=== PATIENT | male | born 1955 | race Caucasian/White ===

== ENCOUNTER → 2019-08-12 13:32 | Outpatient (CLI) | payer MEDICAID, SELFPAY ==
--- NOTE | 2019-08-12 13:48 | RAD_ITS ---
STUDY: X-RAY - LEFT HAND REASON FOR EXAM: Pain for approximately one year. TECHNIQUE: 3 view(s) of the hand. COMPARISON: None. FINDINGS: Normal radiocarpal articulation. Normal distal radioulnar joint. Normal visualized carpal bones. Normal carpal articulations There is severe joint space narrowing of the carpometacarpal articulation of the thumb. Normal second through fifth carpometacarpal joints. Normal metacarpi. There is mild joint space narrowing of the metacarpophalangeal joint of the thumb. There is mild joint space narrowing of the interphalangeal joint of the thumb. Normal proximal and distal phalanges of the thumb. Normal metacarpophalangeal joints of the second through fifth fingers. There is joint space narrowing of the distal interphalangeal joints of the second through fifth fingers. Normal phalanges of the second through fifth fingers. The soft tissue structures are unremarkable. RAD/Hand Min 3 Views IMPRESSION: Osteoarthritis. Electronically Signed: Alvaro Nicole MD at 14:53 EDT Tel , Service support ,
--- NOTE | 2019-08-12 13:48 | RAD_ITS ---
STUDY: X-RAY - RIGHT HAND REASON FOR EXAM: Pain for approximately one year. TECHNIQUE: 3 view(s) of the hand. COMPARISON: None. FINDINGS: Normal radiocarpal articulation. Normal distal radioulnar joint. Normal visualized carpal bones. There is mild joint space narrowing of the triscaphe articulation. There are marginal osteophytes with moderate to severe joint space narrowing of the carpometacarpal articulation of the thumb. Normal second through fifth carpometacarpal joints. Normal metacarpi. There is joint space narrowing of the metacarpophalangeal joint of the thumb. There is mild joint space narrowing of a interphalangeal joint of the thumb. Normal proximal and distal phalanges of the thumb. Normal metacarpophalangeal joints of the second through fifth fingers. There is joint space narrowing of the distal interphalangeal joints of the second through fifth fingers. Normal phalanges of the second through fifth fingers. The soft tissue structures are unremarkable. RAD/Hand Min 3 Views IMPRESSION: Osteoarthritis. Electronically Signed: Alvaro Nicole MD at 14:15 EDT Tel , Service support ,
== END ==
PROVIDERS: PCP Family Medicine; Referring Provider Family Medicine; Visit Provider Family Medicine
DX: M79.641 Pain in right hand (principal); M79.642 Pain in left hand
CPT/HCPCS: 73130

== ENCOUNTER → 2020-01-21 10:00 | Outpatient (CLI) | payer MEDICAID, SELFPAY | PROVIDERS: PCP Family Medicine | DX: E29.1 Testicular hypofunction (principal) | CPT/HCPCS: 36415; 84403 ==

== ENCOUNTER → 2021-12-09 | Outpatient (CLI) | payer MEDICARE, SELFPAY ==
[2021-12-09 09:46] LABS: Absolute Lymphocyte Count 1.62 X10^3/uL (0.83-4.51); Absolute Neutrophil Count 4.1 X10^3/uL (2.0-7.7); Basophil# 0.03 X10^3/uL; Basophil% 0.5 % (0-1); Eosinophil# 0.14 X10^3/uL; Eosinophils% 2.2 % (0-5); Hematocrit 46.6 % (40-54); Hemoglobin 14.3 g/dL (13.0-16.5); Lymphocyte # 1.62 X10^3/ul (0.83-4.51); Lymphocyte % 25.5 % (19-41); Mean Corp Hgb Conc 30.7 g/dL (32-36); Mean Corpuscular Hgb 29.4 pg (27.0-32.0); Mean Corpuscular Volume 95.7 fL (80-94); Mean Platelet Vol. 10.9 fl (6.2-12.0); Monocyte# 0.43 X10^3/uL; Monocyte% 6.8 % (0-10); NRBC Flagged by Analyzer 0 % (0-5); Neutrophil # 4.08 X10^3/uL (2.7-7.7); Neutrophil % 64.2 % (47-70); Platelet Count 179 K/mm3 (150-450); RBC Distribution Width CV 13.9 % (11.6-14.6); RBC Distribution Width SD 48.6 fl (35.1-43.9); Red Blood Count 4.87 M/mm3 (4.6-6.2); White Blood Count 6.4 K/mm3 (4.4-11.0)
[2021-12-09 10:24] LABS: Vitamin B12 518 pg/mL (211-911)
[2021-12-09 10:36] LABS: ALB/GLOB Ratio 0.9 RATIO (0.9-2.4); AST(SGOT) 16 U/L (15-37); Alanine Aminotransfer ALT/SGPT 20 U/L (16-61); Albumin, Serum 3.5 g/dL (3.2-5.0); Alkaline Phosphatase 121 U/L (45-117); Anion Gap 6 (5-15); BUN 26 mg/dL (7-18); BUN/Creat Ratio 21.3 RATIO (10-20); Calcium,Total 9.3 mg/dL (8.5-10.1); Chloride 110 mmol/L (98-107); Creatinine, Serum 1.22 mg/dL (0.70-1.30); EST Glomerular Filtration Rate 63 mL/min (>60); Est Glom Filt Rate - Afr Amer 76 mL/min (>60); Globulin 3.8 g/dL (2.2-4.2); Glucose 92 mg/dL (74-106); Iron 105 ug/dL (65-175); Iron Binding Capacity,Total 238 ug/dL (250-450); Protein, Total 7.3 g/dL (6.4-8.2); Sodium Level 142 mmol/L (136-145); Thyroid Stim Hormone (TSH) 1.78 uIU/mL (0.358-3.74)
== END | disposition home or self-care (01) ==
PROVIDERS: PCP Family Medicine; Referring Provider Family Medicine; Visit Provider Family Medicine
DX: R20.2 Paresthesia of skin (principal); Z86.39 Personal history of other endocrine, nutritional and metabolic disease
CPT/HCPCS: 80053; 82607; 83036; 83540; 83550; 84443; 85025

== ENCOUNTER → 2022-03-19 | Outpatient (CLI) | payer MEDICARE, SELFPAY ==
[2022-03-19 09:43] LABS: PSA,Total - Annual Screen 0.86 ng/mL (0.00-4.00)
== END | disposition home or self-care (01) ==
LOC: LAB 08:49
PROVIDERS: PCP Family Medicine; Referring Provider Family Medicine; Visit Provider Family Medicine
DX: Z12.5 Encounter for screening for malignant neoplasm of prostate (principal)
CPT/HCPCS: 36415; 84153; G0103

== ENCOUNTER → 2022-06-18 | Outpatient (CLI) | payer MEDICARE, SELFPAY ==
[2022-06-18 08:55] LABS: Absolute Lymphocyte Count 1.39 X10^3/uL (0.83-4.51); Absolute Neutrophil Count 4.1 X10^3/uL (2.0-7.7); Basophil# 0.04 X10^3/uL; Basophil% 0.7 % (0-1); Eosinophil# 0.11 X10^3/uL; Eosinophils% 1.8 % (0-5); Hematocrit 46.8 % (40-54); Hemoglobin 14.3 g/dL (13.0-16.5); Lymphocyte # 1.39 X10^3/ul (0.83-4.51); Lymphocyte % 23.2 % (19-41); Mean Corp Hgb Conc 30.6 g/dL (32-36); Mean Corpuscular Hgb 29.2 pg (27.0-32.0); Mean Corpuscular Volume 95.5 fL (80-94); Mean Platelet Vol. 10.8 fl (6.2-12.0); Monocyte# 0.37 X10^3/uL; Monocyte% 6.2 % (0-10); NRBC Flagged by Analyzer 0 % (0-5); Neutrophil # 4.06 X10^3/uL (2.7-7.7); Neutrophil % 67.6 % (47-70); Platelet Count 206 K/mm3 (150-450); RBC Distribution Width CV 13.4 % (11.6-14.6); RBC Distribution Width SD 47.2 fl (35.1-43.9)
[2022-06-18 09:27] LABS: ALB/GLOB Ratio 0.9 RATIO (0.9-2.4); AST(SGOT) 18 U/L (15-37); Alanine Aminotransfer ALT/SGPT 23 U/L (16-61); Albumin, Serum 3.3 g/dL (3.2-5.0); Alkaline Phosphatase 113 U/L (45-117); Anion Gap 4 (5-15); BUN 22 mg/dL (7-18); BUN/Creat Ratio 19.3 RATIO (10-20); Calcium,Total 8.9 mg/dL (8.5-10.1); Chloride 111 mmol/L (98-107); Creatinine, Serum 1.14 mg/dL (0.70-1.30); EST Glomerular Filtration Rate 68 mL/min (>60); Est Glom Filt Rate - Afr Amer 83 mL/min (>60); Globulin 3.7 g/dL (2.2-4.2); Glucose 89 mg/dL (74-106); Potassium 4.2 mmol/L (3.5-5.1); Sodium Level 140 mmol/L (136-145); Thyroid Stim Hormone (TSH) 2.18 uIU/mL (0.358-3.74)
== END | disposition home or self-care (01) ==
PROVIDERS: PCP Family Medicine; Visit Provider Family Medicine
DX: R41.3 Other amnesia (principal)
CPT/HCPCS: 36415; 80053; 84443; 85025

== ENCOUNTER → 2022-07-20 | Outpatient (CLI) | payer MEDICARE, SELFPAY ==
--- NOTE | 2022-07-20 09:21 | RAD_ITS ---
STUDY: X-RAY - RIGHT SHOULDER REASON FOR EXAM: Male, 67 years old. Pain. TECHNIQUE: 5 view(s) of the shoulder. COMPARISON: None. FINDINGS: Osteopenia. Right shoulder hemiarthroplasty in anatomic alignment without complications. Postsurgical changes of the inferior glenoid. Moderate arthrosis of the AC joint. Normal soft tissues. Normal visualized pulmonary apex. RAD/Shoulder min 2 Views IMPRESSION: Osteopenia with uncomplicated right shoulder arthroplasty. No acute abnormality. Electronically Signed: Kannan Cano, at 11:51 EST ,
== END | disposition home or self-care (01) ==
PROVIDERS: PCP Family Medicine; Referring Provider Orthopaedic Surgery; Visit Provider Orthopaedic Surgery
DX: M25.511 Pain in right shoulder (principal); G89.29 Other chronic pain
CPT/HCPCS: 73030

== ENCOUNTER 2023-11-21 17:30 | Outpatient (RCR) | payer MEDICARE, SELFPAY ==
--- NOTE | 2023-10-12 18:43 | HP.PTEVAL_ITS ---
Patient's Visit Information Visit Information Visit Information: DIANE STAFFORD is a 68 year old M referred to Physical Therapy by Dr. Qasim Lebron MD with a diagnosis of DDD c/s. Date of Evaluation: 10/12/23 Physical Therapist: Ji Watson, DPT, OCS, CSCS Visit Plan Frequency: 3x /Week Duration: 4-6 Weeks Plan: 3x/week for 3-6 weeks 1. cervical retraction exercises and mobs for ext upper thoracic and lower cervical and cervical and postural strength. stretch UT and scalenes strengthen of whole upper half when feeling better to HEP May use STM for neck tightness and stiffness and MH Subjective Subjective: Problems with neck and bulging discs c56. MRI showed this a month ago. Symptoms are Pain back of head down to finger tips running all the way down arm terrible pain and could hardly move. R arm locks up sometimes. Pain is chronic but got much worse and triggered by outbreak of shingles mild L upper arm. About 6 weeks ago. That is less intense now but still hurts, can move better but limited. Still has pain in L arm and arm locks up which is helped by supine arm lifing. Burning pain. Triggered by unknown factor. Pain up to dull up to 7/10. Not sure what caused it. 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 Relaxes watching TV on recliner. sleeping is not great, uses cpap and trazadone, sometimes pain wakes him up. Sleeps on back. H/o R shoulder replacement and needs a revision. Regular exercises: no. Hobbies: no Weighed 625 # and lost 375# from 2012 to 2017 in [place]. Pain neck and R shoulder pain: Pain Intensity (Out of 10): 2 Pain Intensity Range: 1 and 8 Objective Objective: Walks into PT I without AD. Extreme forward head posture and protracted scap. Transfer chair and bed I but posture in chair is flexion lumbar spine and flexed cervical. sturntural stiffening in flexion in upper thoracic and lower cervical is apparent. Good balance with ambulation UE aROM R UE elevation slow and limited to 110(needs TSA), L shoulder is full and without pain currently. cervical aROM is max limited in retraction with some strethcing upon trying, full flexion but painful, rotations to 50 and no pain, extension mostly upper cervical and 35 degrees without pain. reflexes 2/3 bi and tri sensation UE WNL to gross light touch. strength UE 4/5 except R shoulder flexion due to pain is 4-. No myotomal abnormalities. - c/s compression - median and radial nerve stretching problems. Balance/Special Test Scores Oswestry Neck Score: 16 Goals Goal 1:: Pt demonstrate upright sitting posture for 5 min without cues. Goal Time Frame: 4-6 Weeks Goal 2:: I appropriate cervical and upper half strength for posture via HEP Goal Time Frame: 4-6 Weeks Goal 3:: Pain in neck and L arm 2/10 at worst and intermittent. 75% better Goal Time Frame: 4-6 Weeks Goal 4:: No episodes of arm stiffening and unable to move for one week. Goal Time Frame: 4-6 Weeks Goal 5:: oswestry neck 6 or better. Goal Time Frame: 4-6 Weeks Rehabilitation Potential Physical Therapy Diagnosis: neck stiffness and pain limiting comfortable function. Rehabilitation Potential: Fair Anticipated Interventions Patient/Client Instruction: Educate patient on: Condition and Plan of Care For the Purpose of:: To decrease pain, To increase ROM, To improve nutrient delivery to tissue, To improve muscle performance and motor function, To increase tolerance to activity/condition/position and To improve ability of physical actions for home/community/work/leisure Therapeutic Exercise to Include: Strength training, Postural training, Flexibilty training, Passive ROM, Active ROM and Linda Exercises For the Purpose of:: To decrease pain, To increase ROM, To improve nutrient delivery to tissue, To improve muscle performance and motor function, To increase tolerance to activity/condition/position, To improve ability of physical actions for home/community/work/leisure and To improve gait and locomotor functions Manual Therapy Techniques to Include: Mobilization, Passive ROM and Soft tissue mobilization For the Purpose of:: To decrease pain, To increase ROM and To improve nutrient delivery to tissue Thermo therapy (hot pack): Yes Intermittent cervical traction: Yes For the Purpose of:: To decrease pain and To increase ROM Text: Thank you for the opportunity to evaluate your patient. For Medicare and Medicare HMO plans, please review the plan of care and approve it. It will need to be FAXED BACK to us at [phone] for Medicare purposes. For Medicare only, by signing this I certify the plan of care. Please let me know if there are questions or concerns regarding this plan of care. Physician Signature: ____Date:
--- NOTE | 2024-02-27 13:21 | HP.PT.NRP ---
Patient Information Patient Information: DIANE STAFFORD was seen in my office for initial evaluation on 10/12/23. The following Plan of Care was established for this patient: POC Established Initial Frequency: 3x /Week Initial Duration: 4-6 Weeks Anticipated Interventions Patient/Client Instruction: Educate patient on: Condition and Plan of Care For the Purpose of:: To decrease pain, To increase ROM, To improve nutrient delivery to tissue, To improve muscle performance and motor function, To increase tolerance to activity/condition/position and To improve ability of physical actions for home/community/work/leisure Therapeutic Exercise to Include: Strength training, Postural training, Flexibilty training, Passive ROM, Active ROM and Linda Exercises For the Purpose of:: To decrease pain, To increase ROM, To improve nutrient delivery to tissue, To improve muscle performance and motor function, To increase tolerance to activity/condition/position, To improve ability of physical actions for home/community/work/leisure and To improve gait and locomotor functions Manual Therapy Techniques to Include: Mobilization, Passive ROM and Soft tissue mobilization For the Purpose of:: To decrease pain, To increase ROM and To improve nutrient delivery to tissue Thermo therapy (hot pack): Yes Intermittent cervical traction: Yes For the Purpose of:: To decrease pain and To increase ROM Last Seen Last Seen: This patient was last seen in our office 11/21/23. Pertinent comments regarding their Physical therapy will appear below: Pt seen 14 visits of POC and was 85% better. He did not attend his last visit and at this point, it has been over 3 months and I will discontinue from my care. At this point I will be discontinuing this patient from physical therapy. I would be happy to see this patient again in the future if found appropriate by the physician. Thank you! Ji Watson, DPT, OCS, CSCS Balance/Gait/Functional tests Balance/Special Test Scores Oswestry Neck Score: 16
== END 2023-11-21 19:00 | disposition home or self-care (01) ==
LOC: PT 17:30
PROVIDERS: PCP Family Medicine; Referring Provider Family Medicine; Visit Provider Family Medicine
DX: M50.10 Cervical disc disorder with radiculopathy, unspecified cervical region (principal)
CPT/HCPCS: 97012; 97110; 97140; 97161

== ENCOUNTER 2024-01-03 18:07 | Emergency (ER) | payer MEDICARE, SELFPAY ==
[2024-01-03 18:08] VITALS: BP 151/103; PULSE 98; RESP 17; TEMP 36.6; O2SAT 99; BMI 34.5
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
--- NOTE | 2024-01-03 18:36 | RAD_ITS ---
INDICATION: injury EXAMINATION/TECHNIQUE: X-RAY - LEFT XR Wrist 3 Views COMPARISON: FINDINGS: SOFT TISSUES: There is soft tissue swelling. No radiopaque foreign body. BONES/JOINTS: No acute fracture or subluxation.. Normal alignment. Preservation of the joint space.. No sclerotic or destructive changes observed. RAD/Wrist min 3 Views IMPRESSION: Soft tissue swelling. No acute bony injury. Electronically Signed: Lewis Spear DO at 19:19 EDT ,
[2024-01-03] MEDS: Acetaminophen 500 MG Tablet 1000 MG PO (19:53)
== END 2024-01-03 19:57 | disposition home or self-care (01) ==
PROVIDERS: Emergency Provider Emergency Medicine; PCP Family Medicine; Visit Provider Emergency Medicine
DX: S69.92XA Unspecified injury of left wrist, hand and finger(s), initial encounter (principal); W18.09XA Striking against other object with subsequent fall, initial encounter; Y93.H2 Activity, gardening and landscaping; Z79.01 Long term (current) use of anticoagulants; Z79.899 Other long term (current) drug therapy
CPT/HCPCS: 73110; 99283

== ENCOUNTER 2024-06-13 11:20 | Emergency (ER) | payer OTHER, MEDICARE, SELFPAY ==
[2024-06-13 11:20] VITALS: BP 152/104; PULSE 75; RESP 16; TEMP 36.4; BMI 35.4
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
--- NOTE | 2024-06-13 11:26 | RAD_ITS ---
EXAM: XR THORACIC SPINE, 3 VIEWS CLINICAL INDICATION: pain TECHNIQUE: Frontal, lateral and swimmer''s views of the thoracic spine. COMPARISON: No relevant prior studies available. FINDINGS: Grade 1 retrolisthesis of L2 relative to L3 with moderate degenerative disc disease at L2-3 and L1-2. No definite acute fracture or other malalignment. No suspicious lytic or sclerotic lesions of bone. Atherosclerotic calcifications of the thoracic aortic arch which is not enlarged. No other soft tissue abnormalities. RAD/Thoracic Spine 3 Views IMPRESSION: Grade 1 retrolisthesis of L2 relative to L3 with moderate degenerative disc disease at L2-3 and L1-2. No definite acute fracture or other malalignment. Electronically Signed: Slade Santana MD at 12:38 EST ,
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
[2024-06-13] MEDS: Acetaminophen 325 MG Tablet 650 MG PO (11:42)
[2024-06-13 13:09] VITALS: BP 128/78; PULSE 74; RESP 18; TEMP 36.3; O2SAT 100
== END 2024-06-13 13:13 | disposition home or self-care (01) ==
PROVIDERS: Emergency Provider Emergency Medicine; PCP Family Medicine; Visit Provider Emergency Medicine
DX: S16.1XXA Strain of muscle, fascia and tendon at neck level, initial encounter (principal); I48.20 Chronic atrial fibrillation, unspecified; S23.8XXA Sprain of other specified parts of thorax, initial encounter; S33.5XXA Sprain of ligaments of lumbar spine, initial encounter; V59.40XA Driver of pick-up truck or van injured in collision with unspecified motor vehicles in traffic accident, initial encounter; Y92.410 Unspecified street and highway as the place of occurrence of the external cause; Y99.0 Civilian activity done for income or pay; Z79.01 Long term (current) use of anticoagulants; Z79.899 Other long term (current) drug therapy
CPT/HCPCS: 72072; 72100; 99284